=== PATIENT | female | born 1950 | race Caucasian/White ===

== ENCOUNTER 2022-12-11 10:09 | Emergency (ER) | payer MEDICARE ==
[~2022-12-11] VITALS: Ht 149.9 cm; Wt 83.2 kg
[2022-12-11 10:18] VITALS: BP 160/88; PULSE 95; RESP 22; TEMP 98.4; O2SAT 100
--- NOTE | 2022-12-11 10:30 | NUR ---
pt ambulated to restroom for urine sample
--- NOTE | 2022-12-11 10:33 | NUR ---
Patient ambulated to bed 6.
--- NOTE | 2022-12-11 10:37 | NUR ---
Patient being evaluated by physician at bedside.
[2022-12-11] MEDS ORDERED: LORazepam 1 MG TAB ONE (10:38)
[2022-12-11] MEDS ORDERED: LORazepam 1 MG TAB PO ONE (10:40)
[2022-12-11 10:45] VITALS: O2SAT 100
[2022-12-11 10:56] LABS: BASOPHILS # (AUTO) 0.1 K/uL (0.00-0.22); BASOPHILS % (AUTO) 0.9 % (0.0-2.0); EOSINOPHILS # (AUTO) 0.1 K/uL (0-0.4); EOSINOPHILS % (AUTO) 1.4 % (0.0-4.0); HEMATOCRIT 38.2 % (36-48); HEMOGLOBIN 13.1 g/dL (12.0-16.0); LYMPHOCYTES % (AUTO) 27.4 % (20.5-51.1); MEAN CORPUSCULAR HEMOGLOBIN 32 pg (27-31); MEAN CORPUSCULAR HGB CONC 34 g/dL (33-37); MEAN CORPUSCULAR VOLUME 93.5 fL (80-94); MONOCYTES # (AUTO) 0.3 K/uL (0.8-1.0); NEUTROPHILS # (AUTO) 4.8 K/uL (1.8-7.7); NEUTROPHILS % (AUTO) 66.3 % (42.2-75.2); PLATELET COUNT (AUTO) 267 K/uL (140-450); RED BLOOD CELL COUNT(AUTO) 4.08 MIL/uL (4.20-5.40); RED CELL DISTRIBUTION WIDTH 13.2 % (11.6-13.7); WHITE BLOOD COUNT (AUTO) 7.3 K/uL (4.8-10.8)
[2022-12-11 11:12] LABS: ALBUMIN 3.7 g/dL (3.4-5.0); ANION GAP 13.7 (8-16); ASPARTATE AMINOTRANSFERASE 25 U/L (15-37); CARBON DIOXIDE 26.1 mmol/L (21-32); CHLORIDE 103 mmol/L (98-107); GLUCOSE 198 mg/dL (74-106); POTASSIUM 4.8 mmol/L (3.5-5.1); SODIUM SERUM 138 mmol/L (136-145); TOTAL BILIRUBIN 0.7 mg/dL (0.0-1.0); UREA NITROGEN, BLOOD 19 mg/dL (7-18)
[2022-12-11 13:03] VITALS: O2SAT 100
[2022-12-11] MEDS ORDERED: ATA10 PO (13:16)
[2022-12-11 13:43] VITALS: BP 112/60; PULSE 70; RESP 16; TEMP 98
--- NOTE | 2022-12-11 13:43 | NUR ---
Patient discharged with v/s stable. Written and verbal after care instructions FOR PANIC ATTACK AND SOB given and explained. Patient alert, oriented and verbalized understanding of instructions. Ambulatory with steady gait. All questions addressed prior to discharge. ID band removed. Patient advised to follow up with PMD. Rx of ATARAX HCL given. Opportunity to ask questions provided and answered.
--- NOTE | 2022-12-11 15:29 | NUR ---
The patient's care was reviewed and supervised by YOMAIRA SOLANO RN.
== END 2022-12-11 13:43 | disposition home or self-care (01) ==
LOC: MED 10:09
DX: R06.02 Shortness of breath (principal); R06.4 Hyperventilation; I10 Essential (primary) hypertension; Z79.899 Other long term (current) drug therapy
CPT/HCPCS: 36415; 71045; 80053; 81002; 83880; 84484; 85025; 93005; 99285